=== PATIENT | male | born 2000 | race Two or more races ===

== ENCOUNTER 2023-10-27 08:19 | Emergency (ER) | payer BC, OTHER ==
[~2023-10-27] VITALS: Ht 175.3 cm; Wt 77.2 kg
[2023-10-27 09:24] LABS: Basophils # (auto) 0 10 ^3/uL (0-0.2); Basophils % (auto) 0.5 % (0.0-2.0); Eosinophils # (auto) 0.1 10 ^3/uL (0-0.8); Eosinophils % (auto) 1.8 % (0.0-7.0); Hematocrit 45.1 % (41.0-53.0); Lymphocytes # (auto) 2.3 10 ^3/uL (0.4-5.4); Lymphocytes % (auto) 36.5 % (10.0-50.0); Mean Corpuscular Hemoglobin 29.1 pg (28.0-32.0); Mean Corpuscular Hgb Conc. 33.3 g/dL (32.0-36.0); Mean Corpuscular Volume 87.5 fL (80.0-100.0); Monocytes # (auto) 0.3 10 ^3/uL (0-1.3); Monocytes % (auto) 5.6 % (0.0-12.0); Neutrophils # (auto) 3.4 10 ^3/uL (1.6-8.6); Neutrophils % (auto) 55.6 % (37.0-80.0); Nucleated Red Blood Cells % 0.1 %; Red Blood Cells 5.16 10^6/uL (4.5-5.90); Red Cell Distribution Width 13.3 % (11.8-14.3); White Blood Cell 6.2 10^3/uL (4.4-10.8)
[2023-10-27 09:36] LABS: Alanine Aminotransferase 30 U/L (7-40); Albumin 4.7 g/dL (3.2-4.8); Alkaline Phosphatase 92 U/L (46-116); Anion Gap 6 (5-15); Aspartate Aminotransferase 19 U/L (13-40); BUN/Creatinine Ratio 5.2 (10.0-20.0); Blood Urea Nitrogen 6 mg/dL (9-23); Calcium 10.2 mg/dL (8.5-10.1); Carbon Dioxide 29 mmol/L (20-30); Chloride 105 mmol/L (98-107); Glucose 109 mg/dL (74-106); Potassium 4.4 mmol/L (3.5-5.1); Sodium 140 mmol/L (136-145)
[2023-10-27 09:37] LABS: Bilirubin, Total 0.4 mg/dL (0.2-1.0); Total Protein 7.9 g/dL (5.7-8.2)
[2023-10-27] MEDS: ALBUTEROL SULF 2.5 MG/0.5ML(0.5%) NEB SOLN NEB ONE (09:51)
[2023-10-27] MEDS: IPRATROPIUM BROM 0.5 MG/2.5ML INH SOL NEB ONE (09:51)
[2023-10-27] MEDS: BUDESONIDE (INHALATION) 0.5 MG/2 ML NEB NEB ONE (09:52)
[2023-10-27] MEDS ORDERED: ACET500T58 PO (13:41)
[2023-10-27] MEDS ORDERED: ALBUAER3 IN (13:43)
[2023-10-27] MEDS ORDERED: DEXA4TAB PO (13:43)
[2023-10-27 14:02] VITALS: BP 128/84; PULSE 59; RESP 18; TEMP 98.7; O2SAT 99
== END 2023-10-27 14:04 | disposition home or self-care (01) ==
LOC: ER 08:19
DX: R07.89 Other chest pain (principal); J98.01 Acute bronchospasm; Z79.899 Other long term (current) drug therapy
CPT/HCPCS: 36415; 71046; 80053; 84484; 85025; 93005; 94640; 99285; J7644

== ENCOUNTER 2023-10-29 00:32 | Inpatient (IN) | payer BC ==
[~2023-10-29] VITALS: Ht 172.7 cm; Wt 81.6 kg
[~2023-10-29 00:32] MED LIST: ACET500T58 PO; ALBUAER3 IN; DEXA4TAB PO
[2023-10-29 00:54] LABS: Basophils # (auto) 0 10 ^3/uL (0-0.2); Basophils % (auto) 0.1 % (0.0-2.0); Eosinophils # (auto) 0 10 ^3/uL (0-0.8); Hematocrit 46.9 % (41.0-53.0); Hemoglobin 15.8 g/dL (13.5-17.5); Lymphocytes # (auto) 0.4 10 ^3/uL (0.4-5.4); Mean Corpuscular Hemoglobin 29.2 pg (28.0-32.0); Mean Corpuscular Hgb Conc. 33.6 g/dL (32.0-36.0); Mean Corpuscular Volume 86.9 fL (80.0-100.0); Monocytes # (auto) 0.9 10 ^3/uL (0-1.3); Monocytes % (auto) 4.9 % (0.0-12.0); Neutrophils # (auto) 17.7 10 ^3/uL (1.6-8.6); Red Cell Distribution Width 13.5 % (11.8-14.3)
[2023-10-29 01:02] LABS: Chloride 104 mmol/L (98-107); Potassium 3.4 mmol/L (3.5-5.1); Sodium 139 mmol/L (136-145)
[2023-10-29 01:03] LABS: Anion Gap 11 (5-15); Calcium 9.8 mg/dL (8.7-10.4); Carbon Dioxide 24 mmol/L (20-30)
[2023-10-29 01:08] LABS: BUN/Creatinine Ratio 15.3 (10.0-20.0); Blood Urea Nitrogen 21 mg/dL (9-23); Glucose 141 mg/dL (74-106)
[2023-10-29] MEDS: SODIUM CHLORIDE 0.9% 1,000 ML IV SCH (09:45)
[2023-10-29] MEDS: POTASSIUM EFFERVESENT TAB 25 MEQ PO ONE (10:10)
[2023-10-29] MEDS: SODIUM CHLORIDE 0.9% 1,000 ML IV ONE (10:12)
[2023-10-29 14:56] VITALS: PULSE 79; RESP 20; O2SAT 96
[2023-10-29 15:07] VITALS: BP 111/63; PULSE 75; RESP 17; TEMP 97.5; O2SAT 97
[2023-10-29] MEDS: ONDANSETRON HCL 4 MG/2 ML VIAL IV PRN (15:17)
[2023-10-29 15:22] VITALS: O2SAT 97
[2023-10-29] MEDS: cefTRIAXone 1GM/50ML D5W 50 ML IV ONE (16:44)
[2023-10-29 16:55] VITALS: BP_SYST 110; BP_DIAS 62; BP_DIAS 69; PULSE 76; PULSE 93; RESP 17; RESP 18; TEMP 98.4; O2SAT 96; O2SAT 99
[2023-10-29 17:23] LABS: Potassium 3.6 mmol/L (3.5-5.1)
[2023-10-29 21:00] VITALS: BP 113/64; PULSE 77; RESP 17; TEMP 97.7; O2SAT 97
[2023-10-29] MEDS: metroNIDAZOLE 500 MG TAB PO SCH (21:52)
[2023-10-29] MEDS ORDERED: metroNIDAZOLE 500MG/100ML 100 ML IV SCH (22:00)
[2023-10-30] VITALS (7 sets, daily range): BP systolic 101–116; BP diastolic 58–76; PULSE 66–78; RESP 17–19; TEMP 97.5–98.6; O2SAT 94–100
[2023-10-30 06:07] LABS: Basophils # (auto) 0 10 ^3/uL (0-0.2); Basophils % (auto) 0.4 % (0.0-2.0); Eosinophils # (auto) 0.1 10 ^3/uL (0-0.8); Hematocrit 39.8 % (41.0-53.0); Hemoglobin 13.5 g/dL (13.5-17.5); Lymphocytes # (auto) 0.9 10 ^3/uL (0.4-5.4); Lymphocytes % (auto) 11.5 % (10.0-50.0); Mean Corpuscular Hemoglobin 29.6 pg (28.0-32.0); Mean Corpuscular Hgb Conc. 33.8 g/dL (32.0-36.0); Mean Corpuscular Volume 87.4 fL (80.0-100.0); Monocytes # (auto) 0.9 10 ^3/uL (0-1.3); Monocytes % (auto) 11.6 % (0.0-12.0); Neutrophils # (auto) 5.9 10 ^3/uL (1.6-8.6); Neutrophils % (auto) 75.5 % (37.0-80.0); Nucleated Red Blood Cells % 0.1 %; Red Blood Cells 4.55 10^6/uL (4.5-5.90); Red Cell Distribution Width 13.4 % (11.8-14.3); White Blood Cell 7.8 10^3/uL (4.4-10.8)
[2023-10-30 06:18] LABS: Alanine Aminotransferase 23 U/L (7-40); Alkaline Phosphatase 70 U/L (46-116); Anion Gap 3 (5-15); BUN/Creatinine Ratio 10.7 (10.0-20.0); Blood Urea Nitrogen 12 mg/dL (9-23); Calcium 8.6 mg/dL (8.7-10.4); Carbon Dioxide 28 mmol/L (20-30); Chloride 108 mmol/L (98-107); Glucose 95 mg/dL (74-106); Potassium 3.6 mmol/L (3.5-5.1); Sodium 139 mmol/L (136-145)
[2023-10-30 06:19] LABS: Albumin 3.8 g/dL (3.2-4.8); Aspartate Aminotransferase 12 U/L (13-40); Bilirubin, Total 0.3 mg/dL (0.2-1.0); Total Protein 6.3 g/dL (5.7-8.2)
[2023-10-30] MEDS: cefTRIAXone 1GM/50ML D5W 50 ML IV SCH (09:56)
[2023-10-30 10:39] LABS: Urine Bacteria None Seen /hpf (None Seen)
[2023-10-30 10:54] LABS: Urine Blood Negative /uL (Negative); Urine Clarity Clear (Clear); Urine Color Light-Yellow (Yellow); Urine Protein, UAD Negative (Negative); Urine Specific Gravity 1.018 (1.001-1.035); Urine Urobilinogen Normal (Negative); Urine WBC 1 /hpf (0 - 3)
[2023-10-31] VITALS (7 sets, daily range): BP systolic 102–112; BP diastolic 51–60; PULSE 54–72; RESP 16–20; TEMP 36.8; O2SAT 94–98
[2023-11-01] VITALS (7 sets, daily range): BP systolic 100–112; BP diastolic 49–66; PULSE 51–96; RESP 16–22; TEMP 97.7–98.1; O2SAT 97–99
== END 2023-11-01 15:06 | disposition home or self-care (01) | DRG 395 ==
LOC: ER 00:32 → CENTRAL 09:47 → OVERFLOW 09:47 → CENTRAL 15:02
PROVIDERS: ADMIT Nurse Practitioner Family; ATTEND Internal Medicine
DX: K52.1 Toxic gastroenteritis and colitis (principal); E87.6 Hypokalemia; D72.829 Elevated white blood cell count, unspecified; Z79.899 Other long term (current) drug therapy; Z79.1 Long term (current) use of non-steroidal anti-inflammatories (NSAID)
CPT/HCPCS: 36415; 74176; 80048; 80053; 81001; 83735; 84132; 85025; 87493; G0378; J2405